=== PATIENT | female | born 1955 | race Caucasian/White ===

== ENCOUNTER → 2023-09-21 00:53 | Outpatient (CLI) | payer MEDICARE, OTHER, SELFPAY ==
--- OUTSIDE RECORDS SUMMARY | 2023-09-21 00:55 | XMS_ITS | Patient Health Record ---
Author Name Unknown Organization [facility] Billing Info Address [address] [place], [place] [address] Care Team Providers Care Slot Machine Department Floorperson Name Role Phone Steph Mckeon MD Primary Care Provider STEPH MCKEON Unavailable [phone] Allergies Allergen (clinical drug ingredient) Drug/Non Drug Allergy documented on EMR Reaction Allergy Type Onset Date Status albuterol Albuterol Cardiac issues Drug Allergy Ac tive minocycline Minocycline HCl edema/swelling Drug Allergy Active Results Component Value Reference Range Notes LIPID PANEL, STANDARD (Q-760 0) Reviewed date:01/27/2023 10:16:27 AM Interpretation:mildly worse Performing Lab:TP, [id number], [id number] Lalo Orourke MD Notes/Report: FASTING FASTING FASTING FASTING CHOLESTEROL, TOTAL 215 <200 mg/dL HDL CHOLESTEROL 66 > OR = 50 mg/dL TRIGLYCERIDES 66 <150 mg/dL LDL-CHOLESTEROL 133 Reference range: <100 Desirable range <100 mg/dL for primary prevention; <70 mg/dL for patients with CHD or diabetic patients with > or = 2 CHD risk factors. LDL-C is now calculated using the Philippe-Gail calculation, which is a validated novel method providing better accuracy than the Friedewald equation in the estimation of LDL-C. Philippe JANSEN et al. CHRISTAL. 2013;310(19): 1464-5419 (http://education.[employer] [facility] CenterMamaya.com/faq /UMV275) CHOL/HDLC RATIO 3.3 <5.0 (calc) NON HDL CHOLESTEROL 149 <130 mg/dL (calc) For patients with diabetes plus 1 major ASCVD risk factor, treating to a non-HDL-C goal of <100 mg/dL (LDL-C of <70 mg/dL) is considered a therapeutic option. CBC (INCLUDES DIFF/PLT) (Q-6 399) Reviewed date:01/27/2023 10:16:27 AM Interpretation:Normal Performing Lab:[facility] [id number] Lalo Orourke MD Notes/Report: FASTING FASTING FASTING FASTING WHITE BLOOD CELL COUNT 4.0 3.8-10.8 Thousand/uL RED BLOOD CELL COUNT 4.14 3.80-5.10 Million/uL HEMOGLOBIN 13.0 11.7-15.5 g/dL HEMATOCRIT 39.0 35.0-45.0 % MCV 94.2 80.0-100.0 fL MCH 31.4 27.0-33.0 pg MCHC 33.3 32.0-36.0 g/dL RDW 12.2 11.0-15.0 % PLATELET COUNT 291 140-400 Thousand/uL MPV 10.0 7.5-12.5 fL ABSOLUTE NEUTROPHILS [phone] cells/uL ABSOLUTE LYMPHOCYTES 9489 866-1900 cells/uL ABSOLUTE MONOCYTES 456 200-950 cells/uL ABSOLUTE EOSINOPHILS 60 15-500 cells/uL ABSOLUTE BASOPHILS 28 0-200 cells/uL NEUTROPHILS 45.8 LYMPHOCYTES 40.6 MONOCYTES 11.4 EOSINOPHILS 1.5 BASOPHILS 0.7 TSH + FREE T4(Q-23645) Reviewed date:01/27/2023 10:16:28 AM Interpretation:Normal Performing Lab:[facility] [id number] Lalo Orourke MD Notes/Report: FASTING FASTING FASTING FASTING TSH 0.91 0.40-4.50 mIU/L T4, FREE 0.8 0.8-1.8 ng/dL Comprehensive Metabolic Pane l(Q-02016) Reviewed date:01/27/2023 10:16:27 AM Interpretation:Normal Performing Lab:[facility] [id number] Lalo Orourke MD Notes/Report: FASTING FASTING FASTING FASTING GLUCOSE 87 65-99 mg/dL Fasting reference interval UREA NITROGEN (BUN) 22 7-25 mg/dL CREATININE 0.59 0.50-1.05 mg/dL EGFR 100 > OR = 60 mL/min/1.73m2 BUN/CREATININE RATIO SEE NOTE: 6-22 (calc) Not Reported: BUN and Creatinine are within reference range. SODIUM 135 135-146 mmol/L POTASSIUM 5.0 3.5-5.3 mmol/L CHLORIDE 100 98-110 mmol/L CARBON DIOXIDE 27 20-32 mmol/L CALCIUM 9.8 8.6-10.4 mg/dL PROTEIN, TOTAL 6.9 6.1-8.1 g/dL ALBUMIN 4.5 3.6-5.1 g/dL GLOBULIN 2.4 1.9-3.7 g/dL (calc) ALBUMIN/GLOBULIN RATIO 1.9 1.0-2.5 (calc) BILIRUBIN, TOTAL 0.4 0.2-1.2 mg/dL ALKALINE PHOSPHATASE 61 37-153 U/L AST 21 10-35 U/L ALT 22 6-29 U/L US- PELVIS NON OB COMP (7685 6)(MHJX-PELM) Reviewed date:09/09/2023 11:19:15 AM Interpretation:polyp Performing Lab: Notes/Report: polyp THINPREP TIS PAP AND HPV mRN A E6/E7 (Q-39158) Reviewed date:09/01/2023 10:28:34 AM Interpretation:neg pap pos fungal infection Performing Lab:T9B, [facility] [address], [id number] Suman Hernadez MD, Director - [address] [place] [address] Notes/Report: 0 CLINICAL INFORMATION: None given LMP: None given PREV. PAP: None given PREV. BX: None given SOURCE: Cervix STATEMENT OF ADEQUACY: Satisfactory for evaluation. Endocervical/transformat ion zone component present. INTERPRETATION/RESULT: Cytology Results: Negative for intraepithelial lesion or malignancy. INFECTION: Fungal organisms morphologically consistent with Roxi spp. COMMENT: This Pap test has be en evaluated with computer assisted technology. ENGINEERING PRODUCTION LIAISON: GEOVANNA GARCIA(ASCP) CT Screening Location: [place] [address] HPV mRNA E6/E7 Not Detected Not Detected Methodology: [employer] Pelletizer-Mediate d Amplification This assay detects E6/E7 viral messenger RNA (mRNA) from 14 high-risk HPV types (16,18,31,33,35,39,45 ,51,52,56,58,59,66,68 ). Cervical sources are required for HPV testing. If a vaginal source from a patient who has had a total hysterectomy with removal of cervix was submitted, please contact the testing laboratory for alternative testing options. For additional information, please refer to http://education.[employer]/faq/ CBT769d9 (This link if provided for information/ educational purposes only.) NO COLLECTION DATE RECEIVED. WE HAVE USED THE DATE THE SPECIMEN WAS RECEIVED BY THIS LABORATORY THE COLLECTION DATE. IF THIS IS INCORRECT, PLEASE CONTACT CLIENT SERVICES. PHONE NUMBER: [phone] Reason For Referral Reason for evaluation and t reatment please contact patient for appointment Diagnosis 1 Dysarthria (R47.1) Referral Organization [id number] [place] [address] Referring Provider First Name MUSCODA Referring Provider Last Name [facility] Referring Provider [facility] Referred Provider Misael Cuevas Referred Provider Specialty Neurology Referral Priority Routine Reason Evaluate and treat Please contact patient to schedule PT IS OUT OF TOWN UNTIL DECEMBER 2023 Diagnosis 1 Endometrial polyp (N 84.0) Referral Organization [id number] [place] [address] Referring Provider First Name MUSCODA Referring Provider Last Name [facility] Referring Provider [facility] Referred Provider Lesley Carlisle Referred Provider Specialty OB - Gynecol ogy Referral Priority Routine Medications Medication SIG (Take, Route, Frequency, Duration) Notes Start Date End Date Status Triamcinolone Acetonide 0.1 % 1 application Externally Two times a Week for 30 day(s) 07/17/2020 Active CholestOff 450 MG as directed Orally Active Propranolol HCl 20 mg TAKE 1 TABLET STERLING Y NEEDED ON AN EMPTY STOMACH Active Sertraline HCl 100 mg TAKE 1 TABLET DAILY Active Fluconazole 150 MG 1 tablet Orally Once a Week for 14 days 09/01/2023 Active Zyrtec Allergy 10 MG 1 tablet Orally Onc e a day Active Estring 2 MG as directed Vaginal Active Probiotic Active HydrOXYzine HCl 25 MG 1 tablet as needed Orally QHS cause drowsiness for 90 days 07/17/2020 Active Social History Tobacco Use: Social History Observation Description Date Details (start date - stop date) Former Smoker NA - NA Tobacco Status: Question Answer Notes Patient is a former smoker Problems Problem Type SNOMED Code ICD Code Onset Dates Problem Status W/U Status Risk Notes Problem 528462677 Pure hypercholesterole dory, unspecified (E78.00) Active confirmed Problem 834701801 Lung nodule (R91.1) Active confirmed Problem 04811301 Hyponatremia (E87.1) Active confirmed Problem 603836072 Thyroid nodule (E04.1) Active confirmed Problem 758425275 Menopausal syndrome (N95.1) Active confirmed Problem 66135574 Vasculitis (I77.6) Active confirmed Problem 32610159 Atrophic vaginitis (N95.2) Active confirmed Problem 12559532 Anxiety (F41.9) Active confirmed Problem Lesion of liver (810463126) Liver lesion (K76.9) Active confirmed Problem Liver nodule (084038771) Liver nodule (K76.89) Active confirmed Problem 489485524 Insomnia, unspecified type (G47.00) Active confirmed Problem 343655939 Adrenal nodule (E27.8) Active confirmed Vital Signs Heart Rate 63 /min 08/29/2023 Temperature 98.0 degrees Fahrenheit 08/29/2023 Respiratory Rate 16 /min 08/29/2023 Oximetry 98 08/29/2023 Blood pressure diastolic 60 mm Hg 08/29/2023 Height 63 in 08/29/2023 Blood pressure systolic 112 mm Hg 08/29/2023 Weight 127 lbs 08/29/2023 BMI 22.49 kg/m2 08/29/2023 Encounters Encounter Location Date Provider Diagnosis [id number] [address] [id number] [facility] [address] [place], [place] [id number] 09/21/2022 STEPH KHADOUR [id number] [place], [place] [id number] 09/23/2022 STEPH FILIPPOADOUR Anxiety F41.9 [id number] V[address] [id number] [facility] [address] [place] [id number] 01/27/2023 STEPH KHADOUR Pure hypercholesterolemia, unspecified E78.[id number] [place] [id number] 02/09/2023 STEPH [facility]KEON [id number] [address] [facility] [address] [place] [id number] 09/01/2023 STEPH MCKEON [id number] [address] [facility] [address] [place] [id number] 09/09/2023 STEPH [facility]ON [id number] [address] [facility] [address] [place] [id number] 01/26/2023 STEPH MCKEON Medicare welcome exa m Z00.00 ; Dysarthria R47.1 ; Anxiety F41.9 ; Pure hypercholesterolemia, unspecified E78.00 ; Hyponatremia E87.1 ; Thyroid nodule E04.1 ; Insomnia, unspecified type G47.00 ; Atrophic vaginitis N95.2 ; Breast screening Z12.39 and Menopausal syndrome [facility]95.1 [id number] [address] [id number] 08/29/2023 STEPH MCKEON Pelvic pain in femal e R10.2 Assessments Encounter Date Diagnosis (ICD Code) Assessment Notes Treatment Notes Treatment Clinical Notes 01/26/2023 Medicare welcome exam (ICD-10 - Z00.00) Well Visit, Over 65: Care Instructions material was printed 01/26/2023 Dysarthria (ICD-10 - R47.1) 09/23/2022 Anxiety (ICD-10 - F41.9) 01/27/2023 Pure hypercholesterolemi a, unspecified (ICD-10 - E78.00) 08/29/2023 Pelvic pain in female (ICD-10 - R10.2) Pelvic Pain: Care Instructions material was printed 01/26/2023 Anxiety (ICD-10 - F41.9) 01/26/2023 Pure hypercholesterolemi a, unspecified (ICD-10 - E78.00) 01/26/2023 Hyponatremia (ICD-10 - E87.1) 01/26/2023 Thyroid nodule (ICD-10 - E04.1) 01/26/2023 Insomnia, unspecified type (ICD-10 - G47.00) 01/26/2023 Atrophic vaginitis (ICD-10 - N95.2) 01/26/2023 Breast screening (ICD-10 - Z12.39) 01/26/2023 Menopausal syndrome (ICD-10 - N95.1) 01/26/2023 Other A Healthy Lifestyle: Care Instructions material was published Plan Of Treatment Pending Test Test Name Order Date CT- ABD PELVIS WO WITH CONTRA(JX-ABDPE LWWO) 07/17/2020 CT- CHEST W AND W/O CONTRAST (99800)(J X-CHEW) 07/17/2020 US- TRANSVAGINAL NON OB (24344)(JX-TRA NVAG) 08/29/2023 SHAHLA- MAMMO SCR DDI BI (58078)([facility] 01/26/2023 CT- LUNG CANCER SCREENING EXAM (90785)(M HJX-LUNGSCREEN) 01/10/2020 DEXA- BONE DENSITY (42137)(QMDEXA) 02/08 Future Test Test Name Order Date Comprehensive Metabolic Panel(Q-25806) 0 04/28/2020 CBC (INCLUDES DIFF/PLT) (Q-6399) 021 LIPID PANEL, STANDARD (Q-7600) 1 TSH (Q-899) 04/28/2020 LIPID PANEL, STANDARD (Q-7600) 4 Next Appt Details Provider Name:STEPH MCKEON , 01/30/2024 11:20:00 AM, [id number] [facility], [address], [place], [place], [id number], Insurance Providers Payer Name Payer Address Payer Phone Subscriber Number Group Number Insured Name Patient Relationship to Insured Coverage Start Date Coverage End Date MEDICARE [place] PART B [address] [facility] DOU[place] RYAN [id number] [place] on, Grecia Self - patient is the insured 3 FOR LIFE ALL [facility] [address] [place], [place] [id number] [place]ring[place] on, Grecia Self - patient is the insured Medical (General) History Medical History History ICD Code Anxiety HRT Surgical History Surgery Date(Month/Year) Right shoulder 12/2018 Right knee 2012 Left shoulder 2016 Dental implants 2014 Colonoscopy 2014 tooth extraction 2004 Sebaceous cyst neck rt 2002 Tubaligation 1996 Righ knee 1988 Lumpectomy rt breast 1981 Left knee 1975 Hospitalization History Reason Date(Month/Year) left knee 1975 Right knee 1988
--- OUTSIDE RECORDS SUMMARY | 2023-09-21 00:55 | XMS_ITS | Patient Health Record ---
Author Name Unknown Organization [employer] Address [address] [facility] [address] [place] [address] Care Team Providers Care Marketing Recruiter Name Role Phone Drew Frye MD Primary Care Provider [facility] [phone] Reason For Referral No Information Plan Of Treatment No Information Insurance Providers Payer Name Payer Address Payer Phone Subscriber Number Group Number Insured Name Patient Relationship to Insured Coverage Start Date Coverage End Date [facility] [address] [place] [address] [id number] ELLIOTT LEE Self - patient is the insured [facility] [address] [place] [address] [id number] ELLIOTT LEE Self - patient is the insured
--- OUTSIDE RECORDS SUMMARY | 2023-09-21 00:55 | XMS_ITS | Continuity of Care Document ---
Author Name Unknown Organization [facility] Address [address] [place] [address] Encounter [facility] NBR [id number] Date(s): 07/22/22 - 07/22/22 [facility] [address] [place] [address] [place] Discharge Disposition: Home Allergies, Adverse Reactions, Alerts Substance Reaction Severity Status Minocin Joint swelling Moderate Active Albuterol Sulfate Chest tightness chest heaviness Severe Active Egg Yolk Sickness Mild Active Assessment and Plan Future Appointments Medications Acidophilus Probiotic Blend 1 cap, Oral, Daily, 0 Refill(s) Start Date: 01/18/22 Status: Ordered Estring 1 EA, VAG, every 3 mo, 0 Refill(s) Start Date: 01/18/22 Stop Date: 04/18/22 Status: Ordered Estring 2 mg vaginal ring 2 mg = 1 EA, VAG, every 3 mo, # 1 EA, 4 Refill(s), Pharmacy: [facility] Start Date: 01/18/22 Status: Ordered loratadine 10 mg oral capsule 10 mg = 1 cap, Oral, Daily, # 40 cap, 0 Refill(s) Start Date: 01/18/22 Status: Ordered propranolol 10 mg oral tablet 1 tab, Oral, Daily, ON AN EMPTY STOMACH., # 90 tab, 3 Refill(s), Pharmacy: [facility] Start Date: 07/22/22 Status: Ordered sertraline 100 mg oral tablet 100 mg = 1 tab, Oral, Daily, # 90 tab, 0 Refill(s) Start Date: 01/18/22 Status: Ordered Turmeric 0 Refill(s) Start Date: 01/18/22 Status: Ordered Problem List Condition Confirmation Course Effective Dates Status Health Status Informant Anxiety Confirmed Active 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 GERD - Gastro-esophageal reflux disease Confirmed Active Hyperlipidemia Confirmed Active Multiple thyroid nodules Confirmed Active Palpitations Confirmed Active Procedures Procedure Date Related Diagnosis Body Site Status Arthroscopy, shoulder, surgi bertha; with rotator cuff repair 01/2016 Completed Arthroscopy, shoulder, surgi bertha; with rotator cuff repair 07/2015 Completed Colonoscopy, flexible; with biopsy, single or multiple 2013 Completed Colonoscopy, flexible; diagn ostic, including collection of specimen(s) by brushing or washing, when performed (separate procedure) 2011 Completed Colonoscopy, flexible; with biopsy, single or multiple 2006 Completed Excision of submandibular (submaxillary) gland 2001 Completed Biopsy of breast; open, incisional 1976 Completed Excision of thrombosed hemor rhoid, external Completed Social History Social History Type Response Tobacco Former tobacco user Tobacco Use:. Total pack years: 30. Sex Female Patient Care team information Care Team Related Persons Name: SHAQUILLE DORANTES Address: Home [address] [place] [address]
--- OUTSIDE RECORDS SUMMARY | 2023-09-21 00:56 | XMS_ITS | Continuity of Care Document ---
Author Name Unknown Organization [facility] Address [address] [place] [address] [place] [address]- Care Team Providers Care Drum Tender Name Role Phone PCP, NO Primary Care Physician Unavailab le Encounter [facility] Date(s): 10/05/19 - 10/05/[address] [place] [address] Discharge Disposition: Home/Self Care Attending Physician: MURTAZA LAGOS Admitting Physician: MURTAZA LAGOS Referring Physician: MURTAZA LAGOS Assessment and Plan Diagnostic Tests Pending * Coronavirus SARS-CoV-2 (COVID-19) JOSE. 10/05/19
--- NOTE | 2023-09-21 12:30 | DI.US_ITS ---
Exam(s) US THYROID EXAM: US THYROID CLINICAL HISTORY: Assess for change, rt thyroid nodule, E04.1 nontoxic single thyroid nodule. TECHNIQUE: Ultrasound thyroid performed using standard protocol. COMPARISON: US US THYROID/NECK/HEAD from 11/18/2015 US US THYROID/NECK/HEAD from 11/22/2016 FINDINGS: ISTHMUS: 8 mm. Circumscribed mixed cystic and solid nodule noted 1.1 x 0.8 x 0.5 cm RIGHT LOBE: Size: 6.0 x 2.3 x 2.9 cm Echogenicity: Heterogeneous, multinodular appearance. Vascularity: Normal. Nodules: Mid thyroid 1.6 x 0.9 x 1.0 centimeters solid hypoechoic smoothly marginated lesion without echogenic foci. TR 4. This has increased in size when compared with the previous exam where it david ured 1.2 x 0.6 x 0.9 cm. Several other nodules less than a centimeter in size which are mixed cystic and solid, circumscribed without echogenic foci.. LEFT LOBE: Size: 4.0 x 1.7 x 2.3 cm Echogenicity: Normal. Vascularity: Normal. Nodules: None. OTHER FINDINGS: None. IMPRESSION: Enlarged right lobe of the thyroid with several nodules. Increased size and number of right thyroid nodules. The largest nodule measures 1.6 cm, borderline for size for biopsy versus follow-up, TI-RADS 4. DATA REPOSITORY:
== END ==
PROVIDERS: Visit Provider Otolaryngology
DX: E04.2 Nontoxic multinodular goiter (principal)
CPT/HCPCS: 76536

== ENCOUNTER 2024-09-26 02:25 | Outpatient (CLI) | payer MEDICARE, OTHER, SELFPAY ==
--- NOTE | 2024-09-26 08:15 | DI.US_ITS ---
Exam(s) US THYROID EXAM: US THYROID CLINICAL HISTORY: Assess for change,E04.2,MULTINODULAR THYROID. TECHNIQUE: Ultrasound thyroid performed using standard protocol. COMPARISON: US US THYROID from 09/21/2023 FINDINGS: ISTHMUS: 8 mm. Mixed cystic and solid nodule measuring 0.9 by 0.6 x 0.7 cm. Solid components hypoechoic. Wider than tall, smoothly marginated, without echogenic foci, TR 3 nodule. RIGHT LOBE: Size: 6.4 x 2.8 x 3.2 cm Echogenicity: diffusely heterogeneous. Vascularity: Normal. Nodules: Multiple tiny nodules. Largest nodule mid to lower pole measuring 13 by 9 x 15 millimeters. Smoothly marginated, hypoechoic, wider than tall without echogenic foci, TR 4. Not significantly changed in size from prior. Area of inhomogeneous tissue at the lower pole without definite nodule. LEFT LOBE: Size: 5.1 x 1.8 x 2.4 cm Echogenicity: Normal. Vascularity: Normal. Nodules: None. Small cyst lower pole. OTHER FINDINGS: No adenopathy. IMPRESSION: Stable appearance of TR 4 nodule in the right lobe of the thyroid. Stable isthmus nodule. DATA REPOSITORY:
== END 2024-09-26 02:45 ==
LOC: DI 02:26
PROVIDERS: Visit Provider Otolaryngology
DX: E04.2 Nontoxic multinodular goiter (principal)
CPT/HCPCS: 76536